=== PATIENT | female | born 1930 | race Caucasian/White ===

== ENCOUNTER 2017-08-15 15:09 | Inpatient (IN) | payer MEDICARE, OTHER ==
[~2017-08-15] VITALS: Ht 162.6 cm; Wt 53.0 kg
[~2017-08-15 15:09] MED LIST: ALBU18HF2 IH; ATOR20TA PO; CYCL-394 PO; ESTR10TA VG; FLO0.1T PO; GATI2.5D OP; LEVO50TA67 PO; MONT10TA21 PO; OMEP-84 PO; ONDA8TAB6 PO; PRED20TA PO
[2017-08-15] MEDS ORDERED: acetaminophen 325mg tablet PO ONE (15:30)
[2017-08-15 16:01] LABS: PARTIAL THROMBOPLASTIN TIME 26 SECONDS (22-32); PROTHROMBIN TIME 10.4 SECONDS (9.0-12.0)
[2017-08-15 16:05] LABS: BASOPHILS % (AUTO) 0.2 % (0-1); EOSINOPHILS # (AUTO) 0.2 X10'3 (0-0.9); HEMATOCRIT 39.9 % (35.0-45.0); HEMOGLOBIN 13.6 g/dl (12.0-16.0); LYMPHOCYTES # (AUTO) 1.6 X10'3 (1.1-4.8); LYMPHOCYTES % (AUTO) 9.5 % (21-51); MEAN CORPUSCULAR HEMOGLOBIN 31.5 PG (27.0-31.0); MEAN CORPUSCULAR HGB CONC 33.9 % (33.0-36.5); MEAN CORPUSCULAR VOLUME 92.9 FL (78-98); MEAN PLATELET VOLUME 7.2 FL (7.4-10.4); MONOCYTES # (AUTO) 1.4 X10'3 (0-0.9); MONOCYTES % (AUTO) 8.7 % (2-12); NEUTROPHILS # (AUTO) 13.4 X10'3 (1.8-7.7); NEUTROPHILS % (AUTO) 80.6 % (42-75); PLATELET COUNT 398 X10'3 (140-440); RED CELL DISTRIBUTION WIDTH 13.9 % (11.5-14.5); WHITE BLOOD COUNT 16.6 X10'3 (4.5-11.0)
[2017-08-15 16:06] LABS: ALANINE AMINOTRANSFERASE 39 U/L (12-78); ALBUMIN/GLOBULIN RATIO 0.7 (1.1-1.5); ALKALINE PHOSPHATASE 68 IU/L (46-116); ANION GAP 10 (8-16); ASPARTATE AMINO TRANSFERASE 27 U/L (10-37); BILIRUBIN,TOTAL 0.3 MG/DL (0.1-1.0); BLOOD UREA NITROGEN 21 MG/DL (7-18); CALCIUM 9.4 MG/DL (8.5-10.1); CHLORIDE 100 MMOL/L (99-107); GLUCOSE 125 MG/DL (70-104); POTASSIUM 4.3 MMOL/L (3.5-5.1); SODIUM 135 MMOL/L (135-145); TOTAL CARBON DIOXIDE 25.3 MMOL/L (24-32); TOTAL PROTEIN 7.5 G/DL (6.4-8.2); eGFR 33 ML/MIN
[2017-08-15] MEDS ORDERED: cefTRIAXone 1g/NS 100ml IVPB 100 ML IV ONE (16:50)
[2017-08-15] MEDS ORDERED: magnesium 2GM in 50ml NS 50 ML IV PRN (17:35)
[2017-08-15] MEDS ORDERED: magnesium Cl slow-release 64mg tablet PO PRN (17:35)
[2017-08-15] MEDS ORDERED: magnesium hydroxide 30ml (MOM) UD suspension PO PRN (17:35)
[2017-08-15] MEDS ORDERED: acetaminophen 325mg tablet PO PRN ×2 (17:35)
[2017-08-15] MEDS ORDERED: potassium Cl 40MEQ/NS 500ml 500 ML IV PRN ×2 (17:35)
[2017-08-15] MEDS ORDERED: magnesium 4gm in 100ml NS 100 ML IV PRN (17:35)
[2017-08-15] MEDS ORDERED: potassium Cl 20 mEq SR tablet PO PRN ×2 (17:35)
[2017-08-15] MEDS ORDERED: HYDROcodone/acetaminophen 10/325mg tab PO PRN (17:35)
[2017-08-15] MEDS ORDERED: mag hydrox/Alum hydrox/simeth 30ml oral suspension PO PRN (17:35)
[2017-08-15] MEDS ORDERED: HYDROcodone/acetaminophen 5mg/325mg tablet PO PRN (17:35)
[2017-08-15] MEDS ORDERED: ondansetron/PF 4mg/2ml inj IV PRN (17:35)
[2017-08-15] MEDS: K and/or MAG REPLACEMENT MC SCH (17:35)
[2017-08-15 18:21] LABS: CLARITY,URINE Clear (Clear); COLOR,URINE Yellow (Yellow); GLUCOSE, URINE Negative (Neg); KETONES,URINE Negative (Neg); LEUKOCYTE ESTERASE ,URINE Negative (Neg); NITRITES, URINE Negative (Neg); OCCULT BLOOD,URINE Negative (Neg); PROTEIN,URINE Negative (Neg); UROBILINOGEN,URINE 0.2 E.U/dL (0.2-1.0)
[2017-08-15 18:22] LABS: UA COLLECTION TYPE STRAIGHT CATH
[2017-08-15 18:28] LABS: MAGNESIUM 1.6 MG/DL (1.5-2.4)
[2017-08-15 20:30] VITALS: BP 157/92
[2017-08-15] MEDS ORDERED: temazepam 15mg capsule PO PRN (21:00)
[2017-08-15] MEDS ORDERED: MULT-1085 PO (21:10)
[2017-08-15] MEDS ORDERED: METH1TAB32 PO (21:10)
[2017-08-15] MEDS ORDERED: ALPR-149 PO (21:10)
[2017-08-15] MEDS ORDERED: CALC-854 PO (21:10)
[2017-08-15] MEDS ORDERED: MIRT45TA6 PO (21:10)
[2017-08-15] MEDS ORDERED: ACET-2119 PO (21:10)
[2017-08-15] MEDS: mirtazapine 15mg tablet PO SCH (23:16)
[2017-08-15] MEDS: ALPRAZolam 0.25mg tablet PO PRN (23:16)
[2017-08-16] VITALS: BP 156/95
[2017-08-16] MEDS: normal saline 1000ml 1,000 ML IV SCH ×4 (02:23→22:40)
[2017-08-16 06:25] LABS: BASOPHILS % (AUTO) 0.2 % (0-1); EOSINOPHILS # (AUTO) 0.2 X10'3 (0-0.9); EOSINOPHILS % (AUTO) 1.5 % (0-6); HEMATOCRIT 35.4 % (35.0-45.0); LYMPHOCYTES % (AUTO) 14.5 % (21-51); MEAN CORPUSCULAR HEMOGLOBIN 31.6 PG (27.0-31.0); MEAN PLATELET VOLUME 7.2 FL (7.4-10.4); MONOCYTES # (AUTO) 1.3 X10'3 (0-0.9); MONOCYTES % (AUTO) 9.2 % (2-12); NEUTROPHILS # (AUTO) 10.4 X10'3 (1.8-7.7); NEUTROPHILS % (AUTO) 74.6 % (42-75); PLATELET COUNT 361 X10'3 (140-440); RED BLOOD COUNT 3.81 X10'6 (4.20-5.60); RED CELL DISTRIBUTION WIDTH 14.3 % (11.5-14.5); WHITE BLOOD COUNT 13.9 X10'3 (4.5-11.0)
[2017-08-16 06:30] VITALS: BP 134/83
[2017-08-16 06:58] LABS: ALBUMIN 2.4 G/DL (3.4-5.0); ANION GAP 9 (8-16); BLOOD UREA NITROGEN 16 MG/DL (7-18); BUN/CREATININE RATIO 11.8 (6.6-38.0); CALCIUM 8.5 MG/DL (8.5-10.1); CHLORIDE 104 MMOL/L (99-107); CREATININE 1.36 MG/DL (0.40-0.90); GLUCOSE 82 MG/DL (70-104); MAGNESIUM 1.7 MG/DL (1.5-2.4); POTASSIUM 3.7 MMOL/L (3.5-5.1); SODIUM 139 MMOL/L (135-145); TOTAL CARBON DIOXIDE 26.4 MMOL/L (24-32); eGFR 37 ML/MIN
[2017-08-16] MEDS: ALPRAZolam 0.25mg tablet PO PRN ×3 (07:20→23:13)
[2017-08-16] MEDS ORDERED: levoFLOXACIN-Levaquin 750MG/D5 150 ML IV SCH (08:00)
[2017-08-16] MEDS: K and/or MAG REPLACEMENT MC SCH (09:19)
[2017-08-16 12:00] VITALS: BP 141/79
[2017-08-16] MEDS ORDERED: ALPRAZOLAM 0.25 MG PO PRN (16:50)
[2017-08-16] MEDS ORDERED: ALPRAZolam 0.25mg tablet PO PRN (16:55)
[2017-08-16 19:00] VITALS: BP 152/84
[2017-08-16] MEDS: methenamine hippurate 1gm tablet PO SCH (20:00)
[2017-08-16] MEDS ORDERED: non-formulary drug (Mirtazapine (Remeron) 1 TAB) PO SCH (21:00)
[2017-08-16] MEDS ORDERED: mirtazapine 15mg tablet PO SCH (21:00)
[2017-08-16] MEDS: mirtazapine 15mg tablet PO SCH (21:03)
[2017-08-17] VITALS: BP 145/75
[2017-08-17 03:29] LABS: BASOPHILS % (AUTO) 0.1 % (0-1); EOSINOPHILS # (AUTO) 0.2 X10'3 (0-0.9); EOSINOPHILS % (AUTO) 1.5 % (0-6); HEMATOCRIT 32.9 % (35.0-45.0); LYMPHOCYTES # (AUTO) 1.9 X10'3 (1.1-4.8); LYMPHOCYTES % (AUTO) 14.4 % (21-51); MEAN CORPUSCULAR HEMOGLOBIN 31.1 PG (27.0-31.0); MEAN CORPUSCULAR HGB CONC 33.4 % (33.0-36.5); MEAN CORPUSCULAR VOLUME 93.2 FL (78-98); MEAN PLATELET VOLUME 6.5 FL (7.4-10.4); MONOCYTES # (AUTO) 1.2 X10'3 (0-0.9); NEUTROPHILS # (AUTO) 9.9 X10'3 (1.8-7.7); PLATELET COUNT 385 X10'3 (140-440); RED BLOOD COUNT 3.53 X10'6 (4.20-5.60); RED CELL DISTRIBUTION WIDTH 14.1 % (11.5-14.5); WHITE BLOOD COUNT 13.1 X10'3 (4.5-11.0)
[2017-08-17 04:21] LABS: ALBUMIN 2.1 G/DL (3.4-5.0); ANION GAP 10 (8-16); BLOOD UREA NITROGEN 13 MG/DL (7-18); BUN/CREATININE RATIO 10.9 (6.6-38.0); CHLORIDE 106 MMOL/L (99-107); CREATININE 1.19 MG/DL (0.40-0.90); GLUCOSE 85 MG/DL (70-104); MAGNESIUM 1.6 MG/DL (1.5-2.4); POTASSIUM 3.6 MMOL/L (3.5-5.1); SODIUM 138 MMOL/L (135-145); TOTAL CARBON DIOXIDE 22.3 MMOL/L (24-32); eGFR 43 ML/MIN
[2017-08-17] MEDS: K and/or MAG REPLACEMENT MC SCH (08:00)
[2017-08-17] MEDS: levoTHYROXINE 25mcg tablet PO SCH (08:52)
[2017-08-17] MEDS: methenamine hippurate 1gm tablet PO SCH ×2 (08:52→20:10)
[2017-08-17] MEDS: LACTOBACILLUS RHAMNOSUS GG 15 billion unit sprinkle caps PO SCH (08:52)
[2017-08-17] MEDS: normal saline 1000ml 1,000 ML IV SCH (08:55)
[2017-08-17 09:02] VITALS: BP 140/84
[2017-08-17] MEDS ORDERED: ipratropium 0.5 MG/2.5ML nebule IH PRN (10:10)
[2017-08-17] MEDS: dextrose 5%-water 1,000 ML IV SCH (11:29)
[2017-08-17 12:34] VITALS: BP 147/83
[2017-08-17] MEDS: clindamycin phosphate inj 300 MG in dextrose 5%-water 50ml 48 ML IV SCH ×2 (14:47→20:09)
[2017-08-17 20:00] VITALS: BP 150/94
[2017-08-17] MEDS: mirtazapine 15mg tablet PO SCH (20:10)
[2017-08-17 23:30] VITALS: BP 159/83
[2017-08-18] MEDS: clindamycin phosphate inj 300 MG in dextrose 5%-water 50ml 48 ML IV SCH ×4 (03:07→20:33)
[2017-08-18 06:18] LABS: BASOPHILS % (AUTO) 0.3 % (0-1); EOSINOPHILS # (AUTO) 0.2 X10'3 (0-0.9); EOSINOPHILS % (AUTO) 1.8 % (0-6); HEMATOCRIT 37.1 % (35.0-45.0); HEMOGLOBIN 12.5 g/dl (12.0-16.0); LYMPHOCYTES # (AUTO) 1.9 X10'3 (1.1-4.8); LYMPHOCYTES % (AUTO) 18.5 % (21-51); MEAN CORPUSCULAR HEMOGLOBIN 31.3 PG (27.0-31.0); MEAN CORPUSCULAR HGB CONC 33.5 % (33.0-36.5); MEAN CORPUSCULAR VOLUME 93.2 FL (78-98); MEAN PLATELET VOLUME 6.8 FL (7.4-10.4); MONOCYTES # (AUTO) 1.1 X10'3 (0-0.9); NEUTROPHILS # (AUTO) 7.3 X10'3 (1.8-7.7); NEUTROPHILS % (AUTO) 69.4 % (42-75); PLATELET COUNT 460 X10'3 (140-440); RED BLOOD COUNT 3.98 X10'6 (4.20-5.60); RED CELL DISTRIBUTION WIDTH 13.9 % (11.5-14.5); WHITE BLOOD COUNT 10.5 X10'3 (4.5-11.0)
[2017-08-18 06:50] LABS: ALBUMIN 2.3 G/DL (3.4-5.0); ANION GAP 7 (8-16); BLOOD UREA NITROGEN 8 MG/DL (7-18); BUN/CREATININE RATIO 6.6 (6.6-38.0); CALCIUM 8.1 MG/DL (8.5-10.1); CHLORIDE 104 MMOL/L (99-107); CREATININE 1.22 MG/DL (0.40-0.90); GLUCOSE 95 MG/DL (70-104); MAGNESIUM 1.8 MG/DL (1.5-2.4); POTASSIUM 3.6 MMOL/L (3.5-5.1); SODIUM 139 MMOL/L (135-145); eGFR 42 ML/MIN
[2017-08-18] MEDS: LACTOBACILLUS RHAMNOSUS GG 15 billion unit sprinkle caps PO SCH (07:44)
[2017-08-18] MEDS: methenamine hippurate 1gm tablet PO SCH ×2 (07:44→20:33)
[2017-08-18] MEDS: levoTHYROXINE 25mcg tablet PO SCH (07:45)
[2017-08-18] MEDS: dextrose 5%-water 1,000 ML IV SCH (07:52)
[2017-08-18 07:57] VITALS: BP 145/85
[2017-08-18] MEDS: K and/or MAG REPLACEMENT MC SCH (08:00)
[2017-08-18] MEDS: levoFLOXACIN-Levaquin 750MG/D5 150 ML IV SCH (08:23)
[2017-08-18 11:29] VITALS: BP 148/65
[2017-08-18] MEDS: ALPRAZolam 0.25mg tablet PO PRN (14:24)
[2017-08-18 20:00] VITALS: BP 138/73
[2017-08-18] MEDS: mirtazapine 15mg tablet PO SCH (20:33)
[2017-08-19] VITALS: BP 135/80
[2017-08-19] MEDS: clindamycin phosphate inj 300 MG in dextrose 5%-water 50ml 48 ML IV SCH ×4 (01:28→20:16)
[2017-08-19] MEDS: dextrose 5%-water 1,000 ML IV SCH (03:15)
[2017-08-19 05:48] LABS: BASOPHILS % (AUTO) 0.4 % (0-1); EOSINOPHILS % (AUTO) 0 % (0-6); HEMATOCRIT 39.1 % (35.0-45.0); LYMPHOCYTES # (AUTO) 2.1 X10'3 (1.1-4.8); MEAN CORPUSCULAR HGB CONC 33.1 % (33.0-36.5); MEAN CORPUSCULAR VOLUME 93.5 FL (78-98); MEAN PLATELET VOLUME 6.7 FL (7.4-10.4); MONOCYTES % (AUTO) 10.3 % (2-12); NEUTROPHILS # (AUTO) 6.7 X10'3 (1.8-7.7); NEUTROPHILS % (AUTO) 68.3 % (42-75); PLATELET COUNT 585 X10'3 (140-440); RED BLOOD COUNT 4.18 X10'6 (4.20-5.60); RED CELL DISTRIBUTION WIDTH 13.9 % (11.5-14.5); WHITE BLOOD COUNT 9.9 X10'3 (4.5-11.0)
[2017-08-19 05:52] LABS: ALBUMIN 2.5 G/DL (3.4-5.0); ANION GAP 9 (8-16); BLOOD UREA NITROGEN 7 MG/DL (7-18); BUN/CREATININE RATIO 5.7 (6.6-38.0); CALCIUM 8.5 MG/DL (8.5-10.1); CHLORIDE 102 MMOL/L (99-107); CREATININE 1.22 MG/DL (0.40-0.90); GLUCOSE 100 MG/DL (70-104); MAGNESIUM 1.8 MG/DL (1.5-2.4); POTASSIUM 3.6 MMOL/L (3.5-5.1); SODIUM 137 MMOL/L (135-145); TOTAL CARBON DIOXIDE 26.5 MMOL/L (24-32); eGFR 42 ML/MIN
[2017-08-19] MEDS: K and/or MAG REPLACEMENT MC SCH (06:25)
[2017-08-19 07:17] VITALS: BP 146/78
[2017-08-19] MEDS: LACTOBACILLUS RHAMNOSUS GG 15 billion unit sprinkle caps PO SCH (07:23)
[2017-08-19] MEDS: methenamine hippurate 1gm tablet PO SCH ×2 (07:23→20:16)
[2017-08-19] MEDS: levoTHYROXINE 25mcg tablet PO SCH (07:23)
[2017-08-19 11:34] VITALS: BP 149/76
[2017-08-19 12:30] LABS: CLARITY,URINE CLEAR (Clear); COLOR,URINE STRAW (Yellow); GLUCOSE, URINE NEGATIVE (Neg); KETONES,URINE NEGATIVE (Neg); LEUKOCYTE ESTERASE ,URINE NEGATIVE (Neg); NITRITES, URINE NEGATIVE (Neg); OCCULT BLOOD,URINE NEGATIVE (Neg); PROTEIN,URINE NEGATIVE (Neg); UROBILINOGEN,URINE 0.2 E.U/dL (0.2-1.0)
[2017-08-19 12:31] LABS: UA COLLECTION TYPE NON-SPECIFIED
[2017-08-19 20:00] VITALS: BP 149/93
[2017-08-19] MEDS: QUEtiapine 25mg tablet PO SCH (20:16)
[2017-08-19] MEDS: mirtazapine 15mg tablet PO SCH (20:16)
[2017-08-20] VITALS: BP 144/80
[2017-08-20] MEDS: clindamycin phosphate inj 300 MG in dextrose 5%-water 50ml 48 ML IV SCH ×4 (01:45→20:04)
[2017-08-20 06:00] VITALS: BP 148/71
[2017-08-20 06:01] LABS: BASOPHILS # (AUTO) 0.1 X10'3 (0-0.2); BASOPHILS % (AUTO) 0.5 % (0-1); EOSINOPHILS # (AUTO) 0.1 X10'3 (0-0.9); EOSINOPHILS % (AUTO) 1.3 % (0-6); HEMOGLOBIN 12.6 g/dl (12.0-16.0); LYMPHOCYTES # (AUTO) 1.9 X10'3 (1.1-4.8); LYMPHOCYTES % (AUTO) 16.8 % (21-51); MEAN CORPUSCULAR HEMOGLOBIN 31.3 PG (27.0-31.0); MEAN CORPUSCULAR HGB CONC 33.3 % (33.0-36.5); MEAN PLATELET VOLUME 6.6 FL (7.4-10.4); MONOCYTES # (AUTO) 1.1 X10'3 (0-0.9); MONOCYTES % (AUTO) 9.8 % (2-12); NEUTROPHILS # (AUTO) 7.9 X10'3 (1.8-7.7); NEUTROPHILS % (AUTO) 71.6 % (42-75); PLATELET COUNT 562 X10'3 (140-440); RED BLOOD COUNT 4.04 X10'6 (4.20-5.60); RED CELL DISTRIBUTION WIDTH 13.9 % (11.5-14.5); WHITE BLOOD COUNT 11.1 X10'3 (4.5-11.0)
[2017-08-20 06:38] LABS: ALBUMIN 2.4 G/DL (3.4-5.0); ANION GAP 8 (8-16); BLOOD UREA NITROGEN 10 MG/DL (7-18); BUN/CREATININE RATIO 7.8 (6.6-38.0); CHLORIDE 103 MMOL/L (99-107); CREATININE 1.29 MG/DL (0.40-0.90); GLUCOSE 83 MG/DL (70-104); POTASSIUM 3.7 MMOL/L (3.5-5.1); SODIUM 138 MMOL/L (135-145); TOTAL CARBON DIOXIDE 26.8 MMOL/L (24-32); eGFR 39 ML/MIN
[2017-08-20] MEDS: K and/or MAG REPLACEMENT MC SCH (08:00)
[2017-08-20] MEDS: levoTHYROXINE 25mcg tablet PO SCH (10:21)
[2017-08-20] MEDS: QUEtiapine 25mg tablet PO SCH ×2 (10:21→20:17)
[2017-08-20] MEDS: lisinopril 2.5mg tablet PO SCH (10:22)
[2017-08-20] MEDS: atorvastatin 10mg tablet PO SCH (10:22)
[2017-08-20] MEDS: LACTOBACILLUS RHAMNOSUS GG 15 billion unit sprinkle caps PO SCH (10:22)
[2017-08-20] MEDS: methenamine hippurate 1gm tablet PO SCH ×2 (10:22→20:04)
[2017-08-20 11:00] VITALS: BP 134/77
[2017-08-20] MEDS: levoFLOXACIN-Levaquin 750MG/D5 150 ML IV SCH (12:31)
[2017-08-20 19:00] VITALS: BP 117/77
[2017-08-20] MEDS: mirtazapine 15mg tablet PO SCH (20:04)
[2017-08-21] VITALS: BP 117/58
[2017-08-21] MEDS: clindamycin phosphate inj 300 MG in dextrose 5%-water 50ml 48 ML IV SCH ×3 (01:51→14:17)
[2017-08-21] MEDS: normal saline 1000ml 1,000 ML IV SCH ×2 (02:30→14:50)
[2017-08-21 07:00] VITALS: BP 129/67
[2017-08-21] MEDS: K and/or MAG REPLACEMENT MC SCH (08:00)
[2017-08-21] MEDS: atorvastatin 10mg tablet PO SCH (08:55)
[2017-08-21] MEDS: LACTOBACILLUS RHAMNOSUS GG 15 billion unit sprinkle caps PO SCH (08:55)
[2017-08-21] MEDS: methenamine hippurate 1gm tablet PO SCH (08:55)
[2017-08-21] MEDS: lisinopril 2.5mg tablet PO SCH (08:56)
[2017-08-21] MEDS: levoTHYROXINE 25mcg tablet PO SCH (08:56)
[2017-08-21 09:22] LABS: BASOPHILS # (AUTO) 0.1 X10'3 (0-0.2); BASOPHILS % (AUTO) 0.6 % (0-1); EOSINOPHILS # (AUTO) 0.2 X10'3 (0-0.9); EOSINOPHILS % (AUTO) 1.5 % (0-6); HEMATOCRIT 36.5 % (35.0-45.0); HEMOGLOBIN 12.3 g/dl (12.0-16.0); LYMPHOCYTES # (AUTO) 1.8 X10'3 (1.1-4.8); LYMPHOCYTES % (AUTO) 16.6 % (21-51); MEAN CORPUSCULAR HEMOGLOBIN 31.6 PG (27.0-31.0); MEAN CORPUSCULAR HGB CONC 33.8 % (33.0-36.5); MEAN CORPUSCULAR VOLUME 93.4 FL (78-98); MEAN PLATELET VOLUME 6.1 FL (7.4-10.4); MONOCYTES # (AUTO) 1.1 X10'3 (0-0.9); MONOCYTES % (AUTO) 10.1 % (2-12); NEUTROPHILS # (AUTO) 7.9 X10'3 (1.8-7.7); NEUTROPHILS % (AUTO) 71.2 % (42-75); PLATELET COUNT 575 X10'3 (140-440); RED BLOOD COUNT 3.91 X10'6 (4.20-5.60); RED CELL DISTRIBUTION WIDTH 13.9 % (11.5-14.5); WHITE BLOOD COUNT 11.1 X10'3 (4.5-11.0)
[2017-08-21 09:31] LABS: ALBUMIN 2.2 G/DL (3.4-5.0); ANION GAP 5 (8-16); BLOOD UREA NITROGEN 12 MG/DL (7-18); BUN/CREATININE RATIO 9.9 (6.6-38.0); CHLORIDE 104 MMOL/L (99-107); CREATININE 1.21 MG/DL (0.40-0.90); GLUCOSE 94 MG/DL (70-104); POTASSIUM 4.1 MMOL/L (3.5-5.1); SODIUM 135 MMOL/L (135-145); TOTAL CARBON DIOXIDE 25.8 MMOL/L (24-32); eGFR 42 ML/MIN
[2017-08-21] MEDS ORDERED: QUET25TA34 PO (10:08)
[2017-08-21] MEDS ORDERED: LISI2.5T2 PO (10:08)
[2017-08-21] MEDS ORDERED: ATOR10TA PO (10:08)
[2017-08-21] MEDS: QUEtiapine 25mg tablet PO SCH (10:13)
[2017-08-21 11:00] VITALS: BP 110/55
== END 2017-08-21 17:00 | disposition home health service (06) | DRG 871 ==
LOC: ER 15:10 → ED HOLD 17:33 → EDBEDREQTM 19:54 → EDBEDREQ 19:54 → SUR 3N 20:23
PROVIDERS: ADMIT Family Medicine; ATTEND Family Medicine
DX: A41.9 Sepsis, unspecified organism (principal); J69.0 Pneumonitis due to inhalation of food and vomit; N17.9 Acute kidney failure, unspecified; F03.90 Unspecified dementia, unspecified severity, without behavioral disturbance, psychotic disturbance, mood disturbance, and anxiety; J45.909 Unspecified asthma, uncomplicated; N18.9 Chronic kidney disease, unspecified; M19.90 Unspecified osteoarthritis, unspecified site; R19.7 Diarrhea, unspecified; Z66 Do not resuscitate; Z79.899 Other long term (current) drug therapy
CPT/HCPCS: 36415; 70450; 71045; 80048; 80053; 81003; 83605; 83735; 83880; 84145; 84484; 85025; 85610; 85730; 87040; 87070; 87502; 87503; 92616; 93005; 94760; 97110; 97116; 97161; 99285; A4315; A4353; J0696; J1956; J3490; J7030; J7060; J7070

== ENCOUNTER 2018-10-22 03:26 | Emergency (ER) | payer MEDICARE, OTHER ==
[~2018-10-22] VITALS: Ht 165.1 cm; Wt 42.0 kg
[~2018-10-22 03:26] MED LIST changes: +ACET-2119 PO; -ALBU18HF2 IH; +ALPR-149 PO; +ATOR10TA PO; -ATOR20TA PO; +CALC-854 PO; -CYCL-394 PO; -ESTR10TA VG; -FLO0.1T PO; -GATI2.5D OP; +LISI2.5T2 PO; +METH1TAB32 PO; +MIRT45TA83 PO; -MONT10TA21 PO; -OMEP-84 PO; -ONDA8TAB6 PO; -PRED20TA PO; +QUET25TA34 PO
[2018-10-22] MEDS ORDERED: LIDOcaine 1% w/epiNEPHrine 1:200,000 30ml vial IM ONE (03:45)
--- NOTE | 2018-10-22 04:48 | NUR ---
dr marquez at bedside for lac repair
--- NOTE | 2018-10-22 04:54 | NUR ---
13 sutures placed to left hand
[2018-10-22] MEDS ORDERED: tetanus & diphtheria toxoid (Td) vaccine 0.5ml IMVAC ONE (04:55)
[2018-10-22] MEDS ORDERED: TETanus/Pertussis (Acell)/Diphther VAC/PF (Tdap-Adult) 0.5ml syringe IMVAC ONE (05:00)
[2018-10-22 05:01] VITALS: BP 151/88
== END 2018-10-22 05:13 | disposition home or self-care (01) ==
LOC: ER 03:26
DX: S61.412A Laceration without foreign body of left hand, initial encounter (principal); J45.909 Unspecified asthma, uncomplicated; M19.90 Unspecified osteoarthritis, unspecified site; Z79.899 Other long term (current) drug therapy; W18.11XA Fall from or off toilet without subsequent striking against object, initial encounter; Y93.89 Activity, other specified; Y92.89 Other specified places as the place of occurrence of the external cause; Y99.8 Other external cause status
CPT/HCPCS: 12002; 90471; 90715; 99283; J3490